=== PATIENT | female | born 1985 | race Caucasian/White ===

== ENCOUNTER → 2022-01-03 12:11 | Outpatient (CLI) | payer OTHER, SELFPAY ==
--- NOTE | ~2022-01-03 | MR_ITS ---
EXAMINATION: MR abdomen wo/w con DATE: 01/03/2022 13:12 INDICATION: Other specified disorders of kidney and ureter. Kidney mass. TECHNIQUE: Magnetic resonance imaging (MRI) of the abdomen was performed without and with 20 mL Multi Jose Eduardo intravenous contrast. COMPARISON: chest CT 02/04/11 FINDINGS: The liver, gallbladder, spleen, pancreas, adrenal glands are normal. There is a 7.9 x 6.2 cm multiloc ulated cystic mass of right kidney with enhancing septa measuring up to 3 mm in thickness. There is a 3 mm cyst in left kidney. There are no dilated loops of bowel. There are no pathologically enlarged lymph nodes. There is no free intraperitoneal fluid. IMPRESSION: 1. 7.9 cm Bosniak III cystic mass of right kidney. Reviewed, dictated and finalized at location A.
== END ==
PROVIDERS: PCP Physician Assistant Medical; Visit Provider Physician Assistant Medical
DX: N28.89 Other specified disorders of kidney and ureter (principal)
CPT/HCPCS: 74183; A9577

== ENCOUNTER → 2022-11-12 08:02 | Outpatient (CLI) | payer OTHER, SELFPAY ==
--- NOTE | ~2022-11-12 | CT_ITS ---
CT of the Abdomen: Indication: Disorder of kidney and ureter, unspecified Technique: 2.5 mm axial scans were obtained through the abdomen prior to and following intravenous a dministration of 100 cc of Omnipaque 350. Dose reduction technique was used on this scan by utilizing automated exposure control and iterative reconstruction technique. The dose-length product (DLP) was 1469.00 mGy-cm. COMPARISON: MR dated 01/03/2022 Findings: Scans through the lung bases are unremarkable. The liver, spleen, pancreas, gallbladder, adrenals and left kidney are within normal limits. There is defect of the mid pole right kidney, compatible with history of prior partial nephrectomy. There is a recurrent or persistent 2 cm cystic-appearing lesion just inferior to the area of scarring at the r ight kidney (series 5, axial image 63). No evidence of aortic aneurysm. No lymphadenopathy. Visualized bowel loops are unremarkable. No ascites. Impression: Status post interval partial right nephrectomy. Recurrent or persistent 2 cm cystic-appearing lesion just inferior to the surgical defect at the mid pole the right kidney. Continued follow-up at a minim um is advised. Correlation with prior surgical results/histology recommended. Reviewed, dictated and finalized at location M. Impression: Status post interval partial right nephrectomy. Recurrent or persistent 2 cm cy stic-appearing lesion just inferior to the surgical defect at the mid pole the right kidney. Continued follow-up at a minimum is advised. Correlation with ida or surgical results/histology recommended.
[2022-11-12 08:39] LABS: Estimated Glomerular Filt Rate > 60
== END ==
PROVIDERS: PCP Physician Assistant Medical
DX: N28.9 Disorder of kidney and ureter, unspecified (principal); Z90.5 Acquired absence of kidney
CPT/HCPCS: 74170; Q9967

== ENCOUNTER 2023-01-23 13:36 | Outpatient (RCR) | payer OTHER, SELFPAY ==
--- NOTE | 2023-01-23 14:40 | PTOPEVAL1 ---
Assessment and note entered by Za Carty, PT Evaluation Information Assessment Status Evaluation Diagnosis Dizziness, Giddiness Onset 4-5 weeks ago. Subjective Information Was having vertigo episodes with turning head to the right in bed would have a verigo episode would feel like doing flips . Was happening for 3 weeks straight. Was given prednisone shot and this helped a lot with while she was sleeping. Is nt mostly just wiht bending over and will just get a little wobbly but as soon as ceners on something is fine, only lasts 5 seconds. Has had vertigo multiple years on and off and knows can be caused by stress. Reported Pain Level Pain Score 0: Self Report Assessment PT Clinical Summary Pt presents with complaints consistent with right sided BPPV that appears to have resolved mostly at this point. She has no symptoms or nystagmus with [place]-Hallpike or Roll testing however cont to demo right sided balance deficits however appears functional at this time. Pt educated on returning to therapy of has a flare up for Adia maneuver. Also advised in home Adia manauver based on symptoms and if this does not resolve her issues, to return to therapy. Otherwise, therapy POC will focus on high level balance training as needed over the next month. If pt does not have any further symptoms within a month, this will serve as her discharge note as well. Plan of Care Interventions Neuro Re-education,Therapeutic Activities, Therapeutic Exercise PT Services Indicated Yes Treatment Frequency and 4 visits as needed over 4 weeks Duration These treatments will address the objective and functional deficits as defined above. The patient will be advanced safely and appropriately in order for the patient to progress towards his/her prior level of function. Additional exercises will be introduced and as well as a comprehensive home exercise program upon discharge, if needed, ?to ensure carryover of functional gains achieved in the clinic. This treatment plan has been reviewed and agreement upon by the patient.
--- NOTE | 2023-01-23 14:40 | OPREHPOC ---
Outpatient Therapy Plan of Care This is a Multidisciplinary Plan of Care that may contain components documented by all disciplines (PT, OT, and ST.) PT Problem 1 PT Problem #1 Knowledge Deficit PT Goal 1 Goal Pt will be independent in HEP Pt will verbalize understanding of diagnosis and prognosis Target Visit 4 PT Problem 2 PT Problem #2 Impaired Balance PT Goal 1 Goal Pt will demo tandem balance R/L foot forward eyes closed of 30 seconds Target Visit 4 PT Problem 3 PT Problem #3 Impaired Vestibular Syste PT Goal 1 Goal Pt will report demo appropriate compensatory techniques with transitional motions to minimize symptoms Target Visit 4
== END 2023-02-27 13:10 | disposition home or self-care (01) ==
LOC: ANHHIPT 13:36
PROVIDERS: PCP Physician Assistant Medical; Visit Provider Physician Assistant Medical
DX: R42 Dizziness and giddiness (principal)
CPT/HCPCS: 97161; 97530

== ENCOUNTER 2023-04-08 09:40 | Outpatient (CLI) | payer OTHER, SELFPAY ==
--- NOTE | ~2023-04-08 | CT_ITS ---
EXAMINATION: CT abdomen wo/w con INDICATION: Disorders of the kidneys and ureter, unspecified TECHNIQUE: Computed tomographic images of the abdomen were obtained prior to then after the administr ation of 100 cc of Omnipaque 350 intravenous contrast. The dose-length product (DLP) was 1428.94 mGy- cm. Automated exposure control and iterative reconstruction technique were employed. COMPARISON: 11/12/2022 FINDINGS: There are two 4 mm nodule of the left lower lobe. The liver, spleen, pancreas, gallbladder, and adrenal glands are normal. The left is unremarkable. The heart size is normal. There are changes of partial right nephrectomy. There is a 1.8 cm residual nonenhancing component along the caudal ma rgin of the resection. The left kidney is unremarkable. No pathologically enlarged abdominal lymph no jalil are identified. No free intraperitoneal gas or evidence of bowel obstruction. IMPRESSION: 1. Changes of partial right nephrectomy with unchanged 1.8 cm residual nonenhancing component along t he caudal margin of the resection. 2. Two 4 mm nodules of the left lower lobe, likely infectious/inflammatory. Attention on follow-up Reviewed, dictated and finalized at location B. 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 Changes of partial right nephrectomy with unchanged 1.8 cm residual nonenhan cing component along the caudal margin of the resection. 2. Two 4 mm nodules of the left lower lobe, likely infectious/inflammatory. Att ention on follow-up
[2023-04-08 09:59] LABS: Estimated Glomerular Filt Rate > 60
== END 2023-04-08 09:41 ==
LOC: MICIMG 09:42
DX: N28.9 Disorder of kidney and ureter, unspecified (principal); R91.8 Other nonspecific abnormal finding of lung field; Z90.5 Acquired absence of kidney
CPT/HCPCS: 74170; Q9967

== ENCOUNTER 2023-12-15 08:01 | Outpatient (CLI) | payer OTHER, SELFPAY ==
--- NOTE | ~2023-12-15 | CT_ITS ---
EXAMINATION:CT diagnostic chest w con DATE: 12/15/2023 08:38 INDICATION: Lung nodule. TECHNIQUE: Computed tomography (CT) of the chest was performed without intravenous contrast. Automate d exposure control and iterative reconstruction technique were employed. The dose-length product (DLP ) was 419.48 mGy-cm. COMPARISON: Chest CT 02/04/2011 FINDINGS: There is no pneumonia or pleural effusion. The heart size is normal. No pericardial effusio n. There is mild thoracic spondylosis. There is mild chronic anterior wedging of multiple thoracic ve rtebral bodies. IMPRESSION: 1. Normal lungs. Reviewed, dictated and finalized at location A. IMPRESSION: 1. Normal lungs.
--- NOTE | ~2023-12-15 | CT_ITS ---
EXAMINATION: CT abdomen wo/w con DATE: 12/15/2023 08:38 INDICATION: Kidney mass. TECHNIQUE: Computed tomography (CT) of the abdomen was performed without and with 100 mL Omnipaque 35 0 intravenous contrast. Automated exposure control and iterative reconstruction technique were employ ed. The dose-length product was 1365.36 mGy-cm. COMPARISON: CT abdomen 04/08/2023 FINDINGS: The visualized portions of the lung bases are clear without pneumonia or pleural effusion. The heart size is normal. No pericardial effusion. The liver, gallbladder, spleen, pancreas, and adre nal glands are normal. There are changes of partial right nephrectomy. There is a 4 mm cyst in left k idney. There is no urolithiasis. There are no dilated loops of bowel. There are no pathologically enl arged lymph nodes. There is no free intraperitoneal fluid. There is moderate thoracic spondylosis and mild lumbar spondylosis. IMPRESSION: 1. Partial right nephrectomy. No residual or recurrent neoplasm. Reviewed, dictated and finalized at location A.
[2023-12-15 08:26] LABS: Estimated Glomerular Filt Rate > 60
== END 2023-12-15 08:02 ==
PROVIDERS: PCP Physician Assistant Medical
DX: N28.9 Disorder of kidney and ureter, unspecified (principal); R91.1 Solitary pulmonary nodule
CPT/HCPCS: 71260; 74170; Q9967

== ENCOUNTER 2024-07-27 11:13 | Outpatient (CLI) | payer OTHER, SELFPAY ==
--- NOTE | ~2024-07-27 | MM_ITS ---
EXAMINATION: MM screening stella BI w kannan HISTORY: Screening TECHNIQUE: Craniocaudal and mediolateral oblique 3-D tomosynthesis images were obtained and synthetic 2-D images were generated. CAD analysis was submitted and interpreted. COMPARISON: No prior mammogram is available for comparison at this institution. BREAST PARENCHYMAL COMPOSITION: Not Dense: The breasts are almost entirely fatty. A Not dense: There are scattered areas of fibroglandular density. FINDINGS: There is no evidence of suspicious mass, calcification, or architectural distortion to sugg est malignancy in either breast. There has been no suspicious interval change. IMPRESSION: 1. No mammographic evidence of malignancy. 2. Recommend routine screening mammography in one year. BI-RADS Category 1: Negative Reviewed, dictated and finalized at location A.
== END 2024-07-27 11:14 | disposition home or self-care (01) ==
LOC: MICIMG 11:14
PROVIDERS: PCP Physician Assistant Medical; Visit Provider Physician Assistant Medical
DX: Z12.31 Encounter for screening mammogram for malignant neoplasm of breast (principal)
CPT/HCPCS: 77063; 77067

== ENCOUNTER 2024-10-03 09:43 | Outpatient (CLI) | payer OTHER, SELFPAY ==
--- NOTE | ~2024-10-03 | CT_ITS ---
CT of the Abdomen: Indication: Renal mass Technique: 2.5 mm axial scans were obtained through the abdomen prior to and following intravenous a dministration of 100 cc of Omnipaque 350. Dose reduction technique was used on this scan by utilizing automated exposure control and iterative reconstruction technique. The dose-length product (DLP) was 1223.59 mGy-cm. COMPARISON: 824 Findings: Scans through the lung bases are unremarkable. The liver, spleen, pancreas, gallbladder, adrenals and left kidney are within normal limits. Stable p ostoperative change of the right kidney. No evidence of aortic aneurysm. No lymphadenopathy. Visualized bowel loops are unremarkable. No ascites Impression: Stable postoperative change of the right kidney. No recurrent mass lesion evident. Reviewed, dictated and finalized at location M. Impression: Stable postoperative change of the right kidney. No recurrent mass lesion evide nt.
--- NOTE | ~2024-10-03 | XR_ITS ---
Clinical Indication: Renal mass PA and lateral views of the chest: Comparison: None Findings: The lungs are clear, without evidence of focal consolidation or pleural effusion. Cardiome diastinal silhouette is within normal limits. Bones and soft tissues are unremarkable. Impression: Normal chest. Reviewed, dictated and finalized at [facility]. Impression: Normal chest.
[2024-10-03 10:17] LABS: Estimated Glomerular Filt Rate > 60
== END 2024-10-03 09:44 | disposition home or self-care (01) ==
LOC: MICIMG 09:45
PROVIDERS: PCP Physician Assistant Medical
DX: N28.89 Other specified disorders of kidney and ureter (principal); Z98.890 Other specified postprocedural states
CPT/HCPCS: 71046; 74170; Q9967

== ENCOUNTER 2024-11-29 12:07 | Outpatient (CLI) | payer OTHER, SELFPAY ==
--- NOTE | ~2024-11-29 | US_ITS ---
Thyroid ultrasound. Clinical History: Polycystic ovarian syndrome Findings: Real-time sonography of the thyroid gland was performed. The right lobe measures 5.0 x 1.5 x 1.4 cm. The left lobe measures 5.0 x 1.6 x 1.5 cm. The isthmus is 3 mm in AP diameter. Thyroid par enchyma is homogeneous. No thyroid nodule seen. Impression: Unremarkable exam. Reviewed, dictated and finalized at location M. Impression: Unremarkable exam.
== END 2024-11-29 12:08 | disposition home or self-care (01) ==
PROVIDERS: PCP Physician Assistant Medical; Visit Provider Internal Medicine
DX: E28.2 Polycystic ovarian syndrome (principal); E66.9 Obesity, unspecified; Z71.3 Dietary counseling and surveillance; F41.9 Anxiety disorder, unspecified
CPT/HCPCS: 76536